=== PATIENT | female | born 1955 | race Caucasian/White ===

== ENCOUNTER → 2016-07-12 | Outpatient (CLI) | payer BC | LOC: FIMAGING 10:09 | PROVIDERS: ATTEND Internal Medicine Hematology & Oncology | DX: Z13.820 Encounter for screening for osteoporosis (principal); M85.80 Other specified disorders of bone density and structure, unspecified site; C50.812 Malignant neoplasm of overlapping sites of left female breast; Z78.0 Asymptomatic menopausal state ==

== ENCOUNTER → 2016-07-15 | Outpatient (CLI) | payer BC | LOC: FIMAGING 09:53 | PROVIDERS: ATTEND Orthopaedic Surgery | DX: Z01.818 Encounter for other preprocedural examination (principal); M17.12 Unilateral primary osteoarthritis, left knee ==

== ENCOUNTER 2016-08-09 06:06 | Inpatient (IN) | payer BC ==
[2016-08-09] MEDS ORDERED: LIDOCAINE 1% 2 ML INJ ONE (06:31)
[2016-08-09] MEDS ORDERED: VANCOMYCIN 1 GM VIAL ONE (06:35)
[2016-08-09] MEDS ORDERED: TRANEXAMIC ACID 3,000 MG/50 ML BAG IRR ONE (06:35)
[2016-08-09] MEDS ORDERED: MIDAZOLAM 2 MG/2 ML VIAL ONE (06:58)
[2016-08-09] MEDS ORDERED: TRANEXAMIC ACID 3,000 MG in NS 50 ML IRR ONE (07:00)
[2016-08-09] MEDS ORDERED: ACETAMINOPHEN 325 MG TAB PO ONE (07:00)
[2016-08-09] MEDS ORDERED: CHLORHEXIDINE GLUC HIBICLENS 118 ML BTL TP ONE (07:00)
[2016-08-09] MEDS ORDERED: CEFAZOLIN 2 GM/DEXTR 100 ML IV ONE (07:00)
[2016-08-09] MEDS ORDERED: ROPI/epiNEPH/KETOROLAC JOINT COCKTAIL IU ONE (07:00)
[2016-08-09] MEDS ORDERED: FAMOTIDINE 20 MG TAB PO ONE (07:00)
[2016-08-09] MEDS ORDERED: DEXAMETHASONE 4 MG/ML VIAL IVP ONE (07:00)
[2016-08-09] MEDS ORDERED: PROPOFOL/EMULSION 500 MG/50 ML BOTTLE IV ONE (07:04)
[2016-08-09] MEDS ORDERED: LR 1,000 ML IV ONE (07:07)
[2016-08-09] MEDS ORDERED: LIDOCAINE 1% 5 ML SDV ID PRN (07:07)
[2016-08-09] MEDS ORDERED: PROMETHAZINE HCL 25 MG/ML INJ IVP PRN (07:21)
[2016-08-09] MEDS ORDERED: PROMETHAZINE HCL 25 MG SUPPR PR PRN (07:21)
[2016-08-09] MEDS ORDERED: MAGNESIUM HYDROXIDE 30 ML UDCUP PO PRN (07:21)
[2016-08-09] MEDS ORDERED: BISACODYL 10 MG SUPP PR PRN (07:21)
[2016-08-09] MEDS ORDERED: diphenhydrAMINE 25 MG CAP PO PRN (07:21)
[2016-08-09] MEDS ORDERED: ONDANSETRON DISINTEGRATING 4 MG TAB PO PRN (07:21)
[2016-08-09] MEDS ORDERED: PHARMACY PAIN CONSULT 1 EA MISC PRN (07:21)
[2016-08-09] MEDS ORDERED: METOCLOPRAMIDE 10 MG/2 ML VIAL IVP PRN (07:21)
[2016-08-09] MEDS ORDERED: oxyCODONE IR 5 MG TAB PO PRN (07:21)
[2016-08-09] MEDS ORDERED: TEMAZEPAM 15 MG CAP PO PRN (07:21)
[2016-08-09] MEDS ORDERED: ONDANSETRON 4 MG/2 ML VIAL IVP PRN (07:21)
[2016-08-09] MEDS ORDERED: CYCLOBENZAPRINE 10 MG TAB PO PRN (07:21)
[2016-08-09] MEDS ORDERED: DIPHENOXYLATE/ATROPINE LOMOTIL 1 TAB PO PRN (07:21)
[2016-08-09] MEDS ORDERED: POLYETHYLENE GLYCOL 3350 17 GM PKT PO PRN (07:21)
[2016-08-09] MEDS ORDERED: LACTULOSE 20 GM/30 ML UDCUP PO PRN (07:21)
[2016-08-09] MEDS ORDERED: ROPIVACAINE HCL 150 MG/30 ML INJ ONE (07:24)
[2016-08-09] MEDS ORDERED: clonIDINE 1 MG/10 ML VIAL EP ONE (07:25)
[2016-08-09] MEDS ORDERED: LR 1,000 ML IV SCH (07:30)
--- NOTE | 2016-08-09 08:40 | POSTOPPROG ---
Post Op Note Date of Operation: 08/09/16 Surgeon: July Crespo Online Services Manager: chriss crespo Anesthesiologist: dr. mancini Anesthesia: Spinal, Other (Specify) (adductor canal block) Pre-op Diagnosis: left knee OA Post-op Diagnosis: same Indication: left knee pain due to OA that failed conservative measures Procedure: L TKA Findings: severe knee OA Inf/Abcess present in the surg proc area at time of surgery?: No EBL: 50-100
[2016-08-09] MEDS: SENNOSIDES/DOCUSATE SODIUM TAB PO SCH ×2 (11:24→20:16)
[2016-08-09] MEDS: ACETAMINOPHEN 325 MG TAB PO SCH ×3 (11:46→23:46)
[2016-08-09] MEDS: ceFAZolin 2 GM/DEXTROSE 100 ML IV SCH ×2 (13:56→22:31)
[2016-08-09] MEDS ORDERED: WARFARIN SODIUM 5 MG TAB PO SCH (16:00)
[2016-08-09] MEDS: FAMOTIDINE 20 MG TAB PO SCH (20:17)
[2016-08-10 04:48] LABS: HEMATOCRIT 36.2 % (38.0-47.0); HEMOGLOBIN 12.3 g/dL (12.6-16.3)
[2016-08-10 04:58] LABS: INR 1.07 (0.83-1.16); PROTIME(PATIENT) 13.8 SEC (12.0-15.0)
[2016-08-10] MEDS: ACETAMINOPHEN 325 MG TAB PO SCH ×2 (05:42→11:48)
[2016-08-10 07:50] VITALS: BP 120/68; RESP 20; TEMP 97.6
[2016-08-10] MEDS: FAMOTIDINE 20 MG TAB PO SCH (08:35)
[2016-08-10] MEDS: SENNOSIDES/DOCUSATE SODIUM TAB PO SCH (08:36)
[2016-08-10] MEDS ORDERED: ENOXAPARIN 40 MG/0.4 ML SYR SC SCH (09:00)
[2016-08-10] MEDS ORDERED: ANASTROZOLE 1 MG TAB PO SCH (09:00)
[2016-08-10 09:27] VITALS: PULSE 60; O2SAT 97
--- NOTE | 2016-08-10 12:46 | SOAPPROG ---
TIBURCIO Progress Note Assessment/Plan: Assessment: Bro is doing well POD 1 s/p L TKA pain management is well controlled on oral pain meds VTE ppx: coumadin and lovenox recommended. cont ALIZE rocha Anemia: level expected initially postop D/c planning: d/c to home today, pending release from PT Plan: 08/10/16 12:44 Subjective: Bro is doing well today, denies SOB, chest pain and N/V. Objective: Vital Signs Temp Pulse Resp BP Pulse Ox 36.4 C 60 20 120/68 97 08/10/16 07:49 08/10/16 08:30 08/10/16 07:49 08/10/16 07:49 08/10/16 08:30 Laboratory Results 08/10/16 04:09 08/09/16 08/10/16 08/11/16 05:59 05:59 05:59 Intake Total 2615 Output Total 2130 Balance 485 PT 13.8 SEC (12.0-15.0) 08/10/16 04:09 INR 1.07 (0.83-1.16) 08/10/16 04:09 LLE; incision dressing is clean and dry, NVI, +pf/df ICD10 Worksheet Patient Problems: Problems Problem Status Onset Primary localized osteoarthritis of left knee Acute
--- NOTE | 2016-08-13 10:37 | GOP ---
[f rep st] OPERATIVE REPORT DATE OF OPERATION: 08/09/2016 SURGEON: Manolo Perea MD PICTURE BOOKER: Stefany Perea PA-C. ANESTHESIA: Spinal. PREOPERATIVE DIAGNOSIS: Left knee osteoarthritis. POSTOPERATIVE DIAGNOSIS: Left knee osteoarthritis. PROCEDURE PERFORMED: Left total knee arthroplasty. FINDINGS: ESTIMATED BLOOD LOSS: 30 cc. INDICATIONS: This is a 61-year-old female with severe and progressive pain and deformity of the left knee unresponsive to conservative care. Risks and benefits of the surgical intervention were explained in detail. DESCRIPTION OF PROCEDURE: The patient was brought to the operative room and placed on the table in the supine position. Spinal anesthesia was induced without difficulty. A pneumatic tourniquet was applied about the left proximal thigh, and the leg was prepped and draped in a sterile fashion. The leg bah was applied. After exsanguination by elevation the tourniquet was inflated to 275 mm of mercury. Incision was made anterior medial from the tibial tuberosity to a point 2 cm proximal to the superior pole of the patella. Medial parapatellar arthrotomy was carried out from the superior pole of the patella and posteriorly in line with the fibers of the Type II VMO. The medial collateral ligament was elevated and the infrapatellar fat pad was resected. The patella was everted and the articular surface was excised. A 29 mm patellar button was placed. Attention was turned first to the distal aspect of the left femur. At 3 cm proximal to the medial rise of the femur, 2 percutaneous half pins were placed for fixation of the femoral array. In a similar fashion, 2 pins were placed anteromedial on the tibia for fixation of the tibial array. External land marking and registration of the hip center was performed without difficulty. Internal femoral and tibial registration was carried out without difficulty and the femoral and tibial checkpoints were placed and verified for accuracy. Attention was turned to the femur. The foot print for the size 3 femoral component was cut with the saw using the [employer] robotic system and verified for accuracy against the CT based plan. In a similar fashion, saw was used to cut the footprint for the size 3 tibial component using the [employer] system and verified for accuracy against the CT based plan. The tibial articular surface was excised without difficulty, followed by the intercondylar box cut. The knee was extended and the remnants of the medial and lateral meniscus were excised. The posterior capsule was injected with ropivacaine, epinephrine and Toradol. A size 3 MIS mini-keel tibial tray was positioned. Trial reduction was then carried out. There was excellent range of motion, alignment, and stability using the 11 mm polyethylene. All trials were then removed. The joint was thoroughly irrigated and carefully dried. Two packages of cement and 2 grams of vancomycin were mixed in the vacuum mixer and placed on the fixation surfaces of all surfaces of the components. The components were implanted and all excess cement was thoroughly removed. The permanent 9 mm polyethylene was placed without difficulty. The tourniquet was deflated and all bleeders were coagulated. The wound was thoroughly irrigated and closed using interrupted sutures of 2-0 Vicryl for the joint capsule. The subcu was closed with 3-0 Vicryl and the skin with 4-0 Monocryl. Dermabond and Steri-Strips were applied followed by a compressive dressing. The patient was then moved from the operating room to the recovery room in good condition, having tolerated the procedure well. /[id number]/MODL MTDD
== END 2016-08-10 13:30 | disposition home or self-care (01) | DRG 470 ==
LOC: F3N 06:06
PROVIDERS: ADMIT Orthopaedic Surgery; ATTEND Orthopaedic Surgery
PROC: 0SRD0J9 Replacement of Left Knee Joint with Synthetic Substitute, Cemented, Open Approach (ICD-10-PCS; principal; 2016-08-09 07:15)
DX: M17.12 Unilateral primary osteoarthritis, left knee (principal)
CPT/HCPCS: 97110-GP; 97116-GP; 97161-GP; 97165-GO; 97530-GP; C1713; J0171; J0690; J0735; J1100; J1650; J1885; J2250; J2704; J2795; J3370

== ENCOUNTER → 2016-10-01 | Outpatient (CLI) | payer BC | LOC: FIMAGING 09:29 | PROVIDERS: ATTEND Family Medicine | DX: Z12.31 Encounter for screening mammogram for malignant neoplasm of breast (principal); Z90.12 Acquired absence of left breast and nipple | CPT/HCPCS: G0202-52 ==

== ENCOUNTER → 2017-12-23 | Outpatient (CLI) | payer OTHER | LOC: FIMAGING 13:38 | PROVIDERS: ATTEND Orthopaedic Surgery | DX: Z01.818 Encounter for other preprocedural examination (principal); M17.11 Unilateral primary osteoarthritis, right knee; M25.461 Effusion, right knee; M71.21 Synovial cyst of popliteal space [Baker], right knee ==

== ENCOUNTER 2018-01-14 06:01 | Observation (INO) | payer OTHER ==
[~2018-01-14 06:01] MED LIST: ROPIVACAINE 0.2% 80 MG, EPINEPHrine 0.2 MG, KETOROLAC TROMETHAMINE 30 MG in SYRINGE 0 ML IU ONE; TRANEXAMIC ACID 3,000 MG in NS (SYRINGE) 50 ML IRR ONE
[2018-01-14] MEDS ORDERED: ACETAMINOPHEN 325 MG TAB PO ONE (06:10)
[2018-01-14] MEDS ORDERED: DEXAMETHASONE 4 MG/ML VIAL IVP ONE (06:10)
[2018-01-14] MEDS ORDERED: FAMOTIDINE 20 MG TAB PO ONE (06:10)
[2018-01-14] MEDS ORDERED: ceFAZolin 2 GM/DEXTROSE 100 ML IV ONE (06:10)
[2018-01-14] MEDS ORDERED: LR 1,000 ML IV ONE (06:11)
[2018-01-14] MEDS ORDERED: TRANEXAMIC ACID 3,000 MG/50 ML BAG IRR ONE (06:38)
--- NOTE | 2018-01-14 06:40 | PDHPUP ---
History & Physical Update H&P update statement: This history and physical update is based on an assessment of the patient which was completed after admission or registration (within 24 hours), but prior to the surgery/procedure. H&P update: H&P reviewed & patient examined, no change in patient's condition since H&P completed
[2018-01-14] MEDS ORDERED: DEXAMETHASONE 4 MG/ML VIAL ONE (06:43)
[2018-01-14] MEDS ORDERED: ACETAMINOPHEN 325 MG TAB ONE (06:43)
[2018-01-14] MEDS ORDERED: FAMOTIDINE 20 MG TAB ONE (06:43)
[2018-01-14] MEDS ORDERED: CEFAZOLIN 2 GM/DEXTROSE/100 ML BAG IV ONE (06:43)
[2018-01-14] MEDS ORDERED: PROPOFOL/EMULSION 500 MG/50 ML BOTTLE IV ONE (06:56)
--- NOTE | 2018-01-14 06:59 | PDANEPAE ---
ANE Past Medical History - Cardiovascular History Hx Hypertension: No Hx Arrhythmias: No Hx Chest Pain: No Hx Coronary Artery / Peripheral Vascular Disease: No Hx CHF / Valvular Disease: No Hx Palpitations: No - Pulmonary History Hx COPD: No Hx Asthma/Reactive Airway Disease: No Hx Recent Upper Respiratory Infection: No Hx Oxygen in Use at Home: No Hx Sleep Apnea: No Sleep Apnea Screening Result - Last Documented: Negative - Neurologic History Hx Cerebrovascular Accident: No Hx Seizures: No Hx Dementia: No - Endocrine History Hx Diabetes: No - Renal History Hx Renal Disorders: No - Liver History Hx Hepatic Disorders: No - Neurological & Psychiatric Hx Hx Neurological and Psychiatric Disorders: No - Cancer History Hx Cancer: Yes Cancer History Comment: LEFT BREAST CANCER 07/2008. RADIATION ONLY - Congenital Disorder History Hx Congenital Disorders: No - GI History Hx Gastrointestinal Disorders: No - Other Health History Other Health History: INSOMNIA. ARTHRITIS - Chronic Pain History Chronic Pain: Yes (RT KNEE) - Surgical History Prior Surgeries: LT TOTAL KNEE 08/2016. LEFT MASTECTOMY. RT ING HERNIA E. C- SECTION. BREAST BIOPSIES ANE Review of Systems Review of Systems: - Exercise capacity METS (RN): 4 METS ANE Patient History - Allergies Allergies/Adverse Reactions: No Known Allergies Allergy (Unverified 02/27/15 10:25) - Home Medications Home Medications: Anastrozole [Arimidex 1 mg (*)] 1 mg PO DAILY 07/01/16 [Last Taken 01/14/18 02: 00] Cholecalciferol Vit D3 [Vitamin D3 (*)] 2,000 units PO DAILY 07/01/16 [Last Taken 12/30/17] Multivitamins [Multivitamin (*)] 1 each PO DAILY 07/01/16 [Last Taken 12/30/17] Advil PRN 01/06/18 [Last Taken 12/30/17] Fosamax 70 MG (*) ONCE 01/06/18 [Last Taken 01/12/18] - NPO status NPO Since - Liquids (Date): 01/14/18 NPO Since - Liquids (Time): 02:00 NPO Since - Solids (Date): 01/13/18 NPO Since - Solids (Time): 18:00 - Smoking Hx Smoking Status: Never smoked - Family Anes Hx Family Hx Anesthesia Complications: NONE ANE Labs/Vital Signs - Vital Signs Blood Pressure: 125/75 Heart Rate: 55 Respiratory Rate: 15 O2 Sat (%): 98 Height: 162.56 cm Weight: 65.771 kg ANE Physical Exam - Airway Neck exam: FROM Mallampati Score: Class 2 Mouth exam: normal dental/mouth exam - Pulmonary Pulmonary: no respiratory distress - Cardiovascular Cardiovascular: regular rate and rhythym - ASA Status ASA Status: II ANE Anesthesia Plan Anesthesia Plan: spinal Regional Anesthesia: single shot NB
[2018-01-14] MEDS ORDERED: VANCOMYCIN 1 GM VIAL ONE (07:09)
[2018-01-14] MEDS ORDERED: fentaNYL 100 MCG/2 ML INJ IVP PRN (07:32)
[2018-01-14] MEDS ORDERED: oxyCODONE IR 5 MG TAB PO PRN ×2 (07:32→08:33)
[2018-01-14] MEDS ORDERED: ACETAMINOPHEN 500 MG TAB PO PRN (07:32)
[2018-01-14] MEDS ORDERED: NALOXONE HCL 0.4 MG/ML INJ IVP PRN (07:32)
[2018-01-14] MEDS ORDERED: ONDANSETRON 4 MG/2 ML VIAL IVP PRN ×2 (07:32→08:33)
[2018-01-14] MEDS ORDERED: ALBUTEROL 3 ML DEYVIAL IH PRN (07:32)
[2018-01-14] MEDS ORDERED: HYDROCODONE/APAP 5/325 TAB PO PRN (07:32)
[2018-01-14] MEDS ORDERED: BUPIVACAINE/EPI 0.5% 30 ML SDV ONE (07:50)
[2018-01-14] MEDS ORDERED: PROPOFOL 200 MG/20 ML VIAL ONE (07:56)
[2018-01-14] MEDS ORDERED: diphenhydrAMINE 25 MG CAP PO PRN (08:33)
[2018-01-14] MEDS ORDERED: BISACODYL 10 MG SUPP PR PRN (08:33)
[2018-01-14] MEDS ORDERED: PROMETHAZINE HCL 25 MG SUPPR PR PRN (08:33)
[2018-01-14] MEDS ORDERED: TEMAZEPAM 15 MG CAP PO PRN (08:33)
[2018-01-14] MEDS ORDERED: POLYETHYLENE GLYCOL 3350 17 GM PKT PO PRN (08:33)
[2018-01-14] MEDS ORDERED: LACTULOSE 20 GM/30 ML UDCUP PO PRN (08:33)
[2018-01-14] MEDS ORDERED: MAGNESIUM HYDROXIDE 30 ML UDCUP PO PRN (08:33)
[2018-01-14] MEDS ORDERED: ONDANSETRON DISINTEGRATING 4 MG TAB PO PRN (08:33)
[2018-01-14] MEDS ORDERED: METOCLOPRAMIDE 10 MG/2 ML VIAL IVP PRN (08:33)
[2018-01-14] MEDS ORDERED: PROMETHAZINE HCL 25 MG/ML INJ IVP PRN (08:33)
[2018-01-14] MEDS ORDERED: DIPHENOXYLATE/ATROPINE LOMOTIL 1 TAB PO PRN (08:33)
--- NOTE | 2018-01-14 08:33 | POSTOPPROG ---
Post Op Note Date of Operation: 01/14/18 Surgeon: July Crespo Lawn Mower: chriss crespo PA-C Anesthesiologist: Dr. Palma Anesthesia: Spinal, Other (Specify) (adductor canal block) Pre-op Diagnosis: right knee OA Post-op Diagnosis: same Indication: right knee pain Procedure: R TKA robot assisted Findings: severe knee OA Inf/Abcess present in the surg proc area at time of surgery?: No EBL: 50-100
[2018-01-14] MEDS ORDERED: LR 1,000 ML IV SCH (09:00)
[2018-01-14] MEDS: SENNOSIDES/DOCUSATE SODIUM TAB PO SCH ×2 (09:58→21:17)
[2018-01-14] MEDS: ACETAMINOPHEN 325 MG TAB PO SCH ×2 (13:00→18:26)
[2018-01-14] MEDS: CYCLOBENZAPRINE 10 MG TAB PO PRN ×2 (13:01→21:16)
[2018-01-14] MEDS: ceFAZolin 2 GM/DEXTROSE 100 ML IV SCH ×2 (15:07→21:17)
[2018-01-14] MEDS ORDERED: WARFARIN SODIUM 5 MG TAB PO SCH (16:00)
[2018-01-14] MEDS: FAMOTIDINE 20 MG TAB PO SCH (21:17)
[2018-01-15] MEDS: ACETAMINOPHEN 325 MG TAB PO SCH ×2 (00:09→05:58)
[2018-01-15 05:25] LABS: PROTIME(PATIENT) 13.4 SEC (12.0-15.0)
[2018-01-15 07:56] VITALS: BP 126/69
--- NOTE | 2018-01-15 08:35 | SOAPPROG ---
SOAP Progress Note Assessment/Plan: Assessment: Patient is doing well POD 1 s/p R TKA Pain management: pain is well controlled on oral pain meds. VTE ppx: recommend coumadin and lovenox, INR today 1.0 cont ALIZE and SCDs D/c planning: d/c to home today pending release from PT Plan: 01/15/18 08:34 Subjective: patient is doing well ,denies SOB ,chest pain and N/V Objective: Vital Signs Temp Pulse Resp BP Pulse Ox 36.6 C 51 L 17 126/69 H 98 01/15/18 07:55 01/15/18 07:55 01/15/18 07:55 01/15/18 07:55 01/15/18 07:55 Laboratory Results 01/15/18 04:50 01/14/18 01/15/18 01/16/18 05:59 05:59 05:59 Intake Total 1325 Output Total 1825 Balance -500 PT 13.4 SEC (12.0-15.0) 01/15/18 04:50 INR 1.00 (0.83-1.16) 01/15/18 04:50 RLE: incision dressing is clean and dry, NVI, +pf/df ICD10 Worksheet Patient Problems: Problems Problem Status Onset Primary localized osteoarthritis of right knee Acute Primary localized osteoarthritis of left knee Acute
[2018-01-15] MEDS: FAMOTIDINE 20 MG TAB PO SCH (08:36)
[2018-01-15] MEDS: SENNOSIDES/DOCUSATE SODIUM TAB PO SCH (08:37)
[2018-01-15] MEDS ORDERED: ANASTROZOLE 1 MG TAB PO SCH (09:00)
[2018-01-15] MEDS ORDERED: ENOXAPARIN 40 MG/0.4 ML SYR SC SCH (09:00)
--- NOTE | 2018-01-15 09:40 | ASMTLACE ---
LACE Length of stay for Answers: 2 days current admission Acuity / Level of Answers: No Care: Did the patient have an inpatient admission? Comorbidities - select Answers: Opioid dependence all that apply / Chronic pain # of Emergency department Answers: 0 visits in the last 6 months Score: 6 Date Signed: 01/15/2018 09:39 AM Electronically Signed By:MORE Elizalde
--- NOTE | 2018-01-15 10:35 | GOP ---
DATE OF OPERATION: 01/14/2018 SURGEON: Manolo Perea MD UNDERBASTER: Stefany Perea, MAL. ANESTHESIA: Spinal. PREOPERATIVE DIAGNOSIS: Right knee osteoarthritis. POSTOPERATIVE DIAGNOSIS: Right knee osteoarthritis. PROCEDURE PERFORMED: Right total knee arthroplasty with computer navigation, robotic assist. FINDINGS: ESTIMATED BLOOD LOSS: 30 cc. INDICATIONS: The patient is a 62-year-old female with severe and progressive pain and deformity of t he right knee unresponsive to conservative care. The risks and benefits of surgical intervention we re explained in detail. DESCRIPTION OF PROCEDURE: The patient was brought to the operative room and placed on the table in t he supine position. Spinal anesthesia was induced without difficulty. A pneumatic tourniquet was appl ied about the right proximal thigh, and the leg was prepped and draped in a sterile fashion. The leg bah was applied. After exsanguination by elevation the tourniquet was inflated to 250 mmHg. Incision was made anterior medial from the tibial tuberosity to a point 2 cm proximal to the superior pole of the patella. Medial parapatellar arthrotomy was carried out from the superior pole of the pa tella and posteriorly in line with the fibers of the Type II VMO. The medial collateral ligament was elevated and the infrapatellar fat pad was resected. The patella was everted and the articular surface was excised. A 29 mm patellar button was placed. Attention was turned first to the distal aspect of the femur. After exposure of the femur, 2 half pi ns were placed for fixation of the femoral array. In a similar fashion, 2 pins were placed anteromed ial on the tibia for fixation of the tibial array. External land marking and registration of the hip center were performed without difficulty. Internal femoral and tibial registration were carried out without difficulty and the femoral and tibial checkpoints were placed and verified for accuracy. Attention was turned to the femur. The foot print for the size 3 femoral component was cut with the saw using the [employer] robotic system and verified for accuracy against the CT based plan. In a similar f ashion, the saw was used to cut the footprint for the size 3 tibial component using the [employer] system an d verified for accuracy against the CT based plan. The tibial articular surface was excised without d ifficulty, followed by the intercondylar box cut. The knee was extended and the remnants of the medial and lateral meniscus were excised. The posterior capsule was injected with ropivacaine, epinephrine and Toradol. A size 3 tibial tray was positioned . Trial reduction was then carried out. There was excellent range of motion, alignment, and stability using the 3 x 9 mm polyethylene. All trials were then removed. The joint was thoroughly irrigated and carefully dried. The cemented co mponents were implanted. The permanent mm polyethylene was placed without difficulty. The tourniquet was deflated and all bleeders were coagulated. The wound was thoroughly irrigated and closed using interrupted sutures of 2-0 Vicryl for the joint capsule. The subcu was closed with 3-0 V icryl and the skin with 4-0 Monocryl. Dermabond and Steri-Strips were applied followed by a compress chilo dressing. The patient was then moved from the operating room to the recovery room in good conditi on, having tolerated the procedure well. PATHOLOGY: Severe tricompartmental osteoarthritis. /[id number]/MODL
== END 2018-01-15 11:23 | disposition home or self-care (01) ==
LOC: F3E 06:01 → F3N 07:19
PROVIDERS: ADMIT Orthopaedic Surgery; ATTEND Orthopaedic Surgery
DX: M17.11 Unilateral primary osteoarthritis, right knee (principal)
CPT/HCPCS: 27447; 73560; 97110; 97116; 97161; G0378; C1713; J0171; J0690; J1100; J1650; J1885; J2704; J2795; J3370

== ENCOUNTER → 2018-07-13 | Outpatient (CLI) | payer OTHER | LOC: FIMAGING 08:27 | PROVIDERS: ATTEND Internal Medicine Hematology & Oncology | DX: Z13.820 Encounter for screening for osteoporosis (principal); M85.89 Other specified disorders of bone density and structure, multiple sites; Z78.0 Asymptomatic menopausal state; Z85.3 Personal history of malignant neoplasm of breast ==